=== PATIENT | male | born 1985 | race Caucasian/White ===

== ENCOUNTER → 2019-03-07 08:55 | Outpatient (BNVA) | payer MEDICARE, MEDICAID, SELFPAY | PROVIDERS: PCP Emergency Medicine; Referring Provider Emergency Medicine; Visit Provider Orthopaedic Surgery | DX: M25.532 Pain in left wrist (principal); M67.432 Ganglion, left wrist | CPT/HCPCS: 99201; 99213 ==

== ENCOUNTER 2019-05-14 06:03 | Day surgery (SDC) | payer MEDICARE, MEDICAID, SELFPAY ==
[2019-05-14] VITALS (7 sets, daily range): BP systolic 117–143; BP diastolic 53–83; PULSE 66–81; RESP 10–21; TEMP 36.7–36.8; O2SAT 94–97
[2019-05-14] MEDS: Lactated Ringers 1,000 ML 80 ML IV (07:11)
[2019-05-14] MEDS: ceFAZolin 1 GM/50 ML BAG IVPB (07:43)
--- NOTE | 2019-05-14 08:23 | W.PM.DSUDISC ---
Discharge Plan Disposition Patient Disposition: HOME Condition: Good Discharge Details Reason For Visit: Excision of dorsal wrist ganglion cyst L Attending Provider: Ld Hernandez Primary Care Provider: Lionel Barros Home Meds and New Rx's Prescriptions: New hydrocodone-acetaminophen 5-325 mg tablet 1 tab PO Q6H PRN (Reason: pain) Qty: 7 RF: 0 ibuprofen 800 mg tablet 800 mg PO TID Qty: 30 RF: 0 Continued diclofenac sodium 75 mg tablet,delayed release (DR/EC) 75 mg PO BID PRN (Reason: pain) Qty: 20 RF: 0 ranitidine HCl 150 MG tablet 150 mg PO BID PRNQty: 60 RF: 4 risperidone [Risperdal] 0.5 MG tablet 0.5 mg PO HS RF: 0 Discharge Instructions Additional Instructions: Elevate L hand above heart level as much as possible for next 48 hours. Bend and straighten fingers and thumb L hand 10 times/hour when awake to prevent swelling. Keep dressings and splint dry and in place until you return to 's. Return to 's office in 2 weeks. May use L hand as much as your pain allows. Referrals: Ld Hernandez MD [ [facility] STAFF PHYSICIAN] - (f/u in 2 weeks.) Equipment/Supplies: Splint Activity:: Activity as Tolerated Remove Dressings/Wound Care:: Do Not Remove Shower/Bathe:: Cover Diet:: As Tolerated Discharge Orders Discharge Orders: Discharge Order (Routine); Ordered 05/14/19 Ordered By: Ld Hernandez DS: Diagnosis Discharge Diagnosis (1) Ganglion cyst of dorsum of left wrist: Status: Chronic
--- NOTE | 2019-05-14 15:13 | ROE_ITS ---
DATE OF PROCEDURE: May 14, 2019 PREOPERATIVE DIAGNOSIS: [place] wrist gangling cyst, left. POSTOPERATIVE DIAGNOSIS: Same. PROCEDURE: Excision dorsal wrist ganglion cyst, left wrist. Application of short-arm volar fibergla ss splint. ANESTHESIA: General, Vicki Escalona CRNA SURGEON: Ld Hernandez M.D. INDICATIONS: This is a 33-year-old white male with a greater than one year history of painful dorsal wrist ganglion cyst on the left. This has failed to resolve with conservative treatment. Most impo rtantly he continues to have discomfort with work. Excision of the dorsal wrist ganglion cyst was re commended for continued pain. The risks and complications of the procedure were [facility] pre[facility]. PROCEDURE: The patient was taken to the Operating Room on 05/14/19. He was placed supine on the oper ating table and a general anesthetic was administered. A proximal tourniquet was applied to the left upper arm and the left hand, wrist and forearm were prepped and draped free in the usual sterile fas hion. The ganglion cyst appeared to be located over the scapholunate ligament. A longitudinal incis ion was made, centered over the ganglion cyst, starting just proximal to the distal edge of a tattoo and it was extended proximally to the distal edge of a more proximal tattoo. The incisional length w as about three inches. The incision was carried through the skin and subcu. The cyst was encountere d. The incision was done under tourniquet control. I then circumferentially dissected around the ga nglion cyst. It was overlapping the extensor pollicis longus tendon and appeared to arising just uln ar to the extensor carpi radialis. The cyst was traced down to the wrist capsule and it was directly over the scapholunate ligament. The cyst was completely excised and a capsule window was left over the dorsal wrist joint to allow free drainage and prevent recurrence. Hemostasis was obtained with e lectrocautery. The wound margins were then infiltrated with 0.5% Marcaine with and epinephrine solut ion. The wound was irrigated with saline solution. The skin edges were approximated with interrupte d #4-0 Nylon sutures. Sterile dressings were applied of Xeroform gauze, sterile gauze 4x4's, half of an ABD pad, wrapped with a Kerlix bandage and then a short-arm volar fiberglass splint was applied w ith a 3-inch JORGE bandage, maintaining the wrist in dorsiflexion. The tourniquet was released; there was no breakthrough bleeding to the dressings. The patient's anesthesia was reversed without complic ations. He was discharged to recovery room in good condition. The patient was later discharged home from the Day Surgery Unit when fully recovered from his general anesthesia. He was given instructions to try to elevate his left wrist above heart level as much as possible for the next 48 hours. He was encouraged to flex and extend his fingers and thumb of his l eft hand ten times an hour while awake to prevent swelling. He is to keep his splint and dressings d ry and intact until he follows up in my office in two weeks. He may use his left hand as much as dis comfort allows. He was given a prescription for mild pain and inflammation of 800 mg of ibuprofen t. i.d. for ten days. He was given a prescription for breakthrough pain of Hydrocodone with APAP 5/325, one tablet every six hours, as needed.
== END 2019-05-14 10:10 | disposition home or self-care (01) ==
PROVIDERS: PCP Emergency Medicine; Visit Provider Orthopaedic Surgery
PROC: (CPT 25111; principal; 2019-05-14 07:30)
DX: M67.432 Ganglion, left wrist (principal); M25.532 Pain in left wrist
CPT/HCPCS: 25111; J0690; J1885; J2405; J3010

== ENCOUNTER → 2019-05-29 09:53 | Outpatient (BNVA) | payer MEDICARE, MEDICAID, SELFPAY | PROVIDERS: PCP Emergency Medicine; Referring Provider Emergency Medicine; Visit Provider Orthopaedic Surgery | DX: Z47.89 Encounter for other orthopedic aftercare (principal); M67.432 Ganglion, left wrist | CPT/HCPCS: L3908 ==

== ENCOUNTER 2021-01-27 19:30 | Outpatient (REF) | payer MEDICARE, MEDICAID, SELFPAY | END 2021-01-27 19:31 | disposition home or self-care (01) | LOC: LBN 19:30 | PROVIDERS: PCP Emergency Medicine; Visit Provider Nurse Practitioner Family | DX: J02.9 Acute pharyngitis, unspecified (principal) | CPT/HCPCS: 87070 ==

== ENCOUNTER 2022-08-05 01:13 | Outpatient (CLI) | payer MEDICARE, MEDICAID, SELFPAY ==
--- NOTE | 2022-08-05 08:00 | DI.RAD_ITS ---
Exam(s) XR KNEE LT 3V AP,LAT,NICO EXAM: XR KNEE LT 3V AP,LAT,NICO CLINICAL HISTORY: PT failure, no known trauma,LT KNEE PAIN, M25.562. TECHNIQUE: 2D digital imaging was performed. COMPARISON: No exams were available for comparison FINDINGS: 3 views No evidence of fracture nor prominent joint effusion. No joint space narrowing. Benign bone island noted in the lateral tibial plateau. No osteophytes. No osteochondral defects. Bone density is nor mal. IMPRESSION: No significant osseous findings. No prominent joint effusion. DATA REPOSITORY: RADIATION DOSE DELIVERED:
== END 2022-08-05 01:33 ==
LOC: DI 01:13
PROVIDERS: PCP Nurse Practitioner Family; Visit Provider Nurse Practitioner Family
DX: M25.562 Pain in left knee (principal)
CPT/HCPCS: 73562

== ENCOUNTER → 2022-09-30 11:16 | Outpatient (BNVA) | payer MEDICARE, MEDICAID, SELFPAY | PROVIDERS: PCP Nurse Practitioner Family; Referring Provider Nurse Practitioner Family; Visit Provider Student in an Organized Health Care Education/Training Program | DX: S83.242A Other tear of medial meniscus, current injury, left knee, initial encounter (principal); X58.XXXA Exposure to other specified factors, initial encounter | CPT/HCPCS: 99203 ==

== ENCOUNTER 2022-10-28 03:21 | Outpatient (CLI) | payer MEDICARE, MEDICAID, SELFPAY ==
--- NOTE | 2022-10-28 06:15 | DI.MRI_ITS ---
Exam(s) MR LOWER JOINT LT WO EXAM: MR LOWER JOINT LT WO CLINICAL HISTORY: PAIN,TEAR OF MEDIAL MENISCUS LT KNEE, S83.242A. TECHNIQUE: Multiplanar multisequence MRI was performed. COMPARISON: CR XR KNEE LT 3V AP,LAT,NICO from 08/05/2022 FINDINGS: The examination is limited due to patient motion artifact. BONES: There is no fracture or contusion pattern. JOINTS: There is a small focus of hyperintense signal seen in the lateral aspect of the articular car tilage overlying the medial femoral condyle. No effusion is present. TENDONS: Extensor mechanism: Unremarkable. Medial retinaculum: Unremarkable. Lateral retinaculum: Unremarkable. Popliteus: Unremarkable. MUSCLES: Unremarkable. MENISCI: The medial meniscus is unremarkable. The lateral meniscus is unremarkable. SOFT TISSUES: Unremarkable. LIGAMENTS: Anterior Cruciate: Unremarkable. Posterior Cruciate: Unremarkable. Medial Collateral:Unremarkable. Lateral Collateral: Unremarkable. OTHER: IMPRESSION: 1. Small focus of hyperintense signal seen in the articular cartilage overlying the medial femoral co ndyle which may represent an area of chondromalacia or chondral injury. 2. No evidence of a meniscal or ligament tear. 3. No joint effusion or bony lesion. DATA REPOSITORY:
== END 2022-10-28 03:41 ==
LOC: DI 03:21
PROVIDERS: PCP Nurse Practitioner Family; Visit Provider Student in an Organized Health Care Education/Training Program
DX: M25.562 Pain in left knee (principal); S83.242A Other tear of medial meniscus, current injury, left knee, initial encounter; M23.8X2 Other internal derangements of left knee
CPT/HCPCS: 73721

== ENCOUNTER → 2022-11-04 09:41 | Outpatient (BNVA) | payer MEDICARE, MEDICAID, SELFPAY | PROVIDERS: PCP Nurse Practitioner Family; Referring Provider Nurse Practitioner Family | DX: M23.8X2 Other internal derangements of left knee (principal) | CPT/HCPCS: 20610; J1040 ==

== ENCOUNTER 2022-12-29 05:39 | Outpatient (CLI) | payer MEDICARE, MEDICAID, SELFPAY ==
[2022-12-29 12:57] LABS: ALT 53 U/L (16-63); AST 31 U/L (15-37); Albumin 3.7 g/dL (3.4-5.0); Alkaline Phosphatase 95 U/L (46-116); Anion Gap 7.3 mmol/L (3-11); BUN 13 mg/dL (7-18); Bilirubin, Total 0.3 mg/dL (0.2-1.0); CO2 28.7 mmol/L (21.0-32.0); CREATININE 0.9 mg/dL (0.70-1.30); Calcium 9.1 mg/dL (8.5-10.1); Calculated LDL 144 mg/dL (<100); Chloride 105 mmol/L (98-107); Cholesterol 204 mg/dL (<200); Estimated GFR 112.11 (mL/min/1.73m2); Glucose 147 mg/dL (74-106); HDL Cholesterol 39 mg/dL (40-60); Potassium 4.1 mmol/L (3.5-5.1); Sodium 141 mmol/L (136-145); Total Protein 7.8 g/dL (6.4-8.2); Triglyceride 109 mg/dL (<150)
== END 2022-12-29 05:40 | disposition home or self-care (01) ==
LOC: LOS 05:39
PROVIDERS: PCP Nurse Practitioner Family; Visit Provider Nurse Practitioner Family
DX: Z13.220 Encounter for screening for lipoid disorders (principal); E08.9 Diabetes mellitus due to underlying condition without complications
CPT/HCPCS: 36415; 80053; 80061

== ENCOUNTER 2023-01-05 15:26 | Outpatient (REF) | payer MEDICARE, MEDICAID, SELFPAY | END 2023-01-05 15:27 | disposition home or self-care (01) | LOC: LBN 15:26 | PROVIDERS: PCP Nurse Practitioner Family; Visit Provider Family Medicine | DX: E11.9 Type 2 diabetes mellitus without complications (principal) | CPT/HCPCS: 82043; 82570 ==

== ENCOUNTER 2023-03-14 02:58 | Outpatient (CLI) | payer MEDICARE, MEDICAID, SELFPAY ==
[2023-03-14 12:29] LABS: Abs Immature Grans 0.02 10^3/uL (0.0-0.06); Absolute Basophil Count 0.02 10^3/uL (0.0-0.2); Absolute Eosinophil Count 0.14 10^3/uL (0.0-0.7); Absolute Lymphocyte Count 2.23 10^3/uL (1.2-3.4); Absolute Monocyte Count 0.42 10^3/uL (0.1-0.8); Basophils % 0.3; Eosinophils % 2.3; HCT 45.2 % (40.0-50.0); HGB 15.1 g/dL (13.5-17.5); Immature Grans % 0.3; Lymphocytes % 36.4; MCH 30.9 pg (27.0-33.0); MCHC 33.4 % (32.0-36.0); MCV 92 fL (80-95); MPV 10.7 fL (8.0-11.0); Monocytes % 6.9; Neutrophils % 53.8; Platelet Count 197 10^3/uL (130-400); RBC 4.89 10^6/uL (4.36-5.78); RDW 12.1 % (11.8-14.1); RDW-SD 41.8 fL; WBC 6.13 10^3/uL (4.4-10.8)
[2023-03-14 12:39] LABS: ALT 51 U/L (16-63); AST 27 U/L (15-37); Albumin 4.5 g/dL (3.4-5.0); Alkaline Phosphatase 111 U/L (46-116); Amylase 50 U/L (25-115); Anion Gap 7.8 mmol/L (3-11); BUN 13 mg/dL (7-18); Bilirubin, Total 0.4 mg/dL (0.2-1.0); CO2 30.2 mmol/L (21.0-32.0); Calcium 9.6 mg/dL (8.5-10.1); Chloride 101 mmol/L (98-107); Glucose 109 mg/dL (74-106); Lipase 37 U/L (16-77); Potassium 4.3 mmol/L (3.5-5.1); Sodium 139 mmol/L (136-145); Total Protein 8.2 g/dL (6.4-8.2)
== END 2023-03-14 02:59 | disposition home or self-care (01) ==
LOC: LOS 02:58
PROVIDERS: PCP Nurse Practitioner Family; Visit Provider Nurse Practitioner Family
DX: R10.11 Right upper quadrant pain (principal); R10.13 Epigastric pain; E11.9 Type 2 diabetes mellitus without complications
CPT/HCPCS: 36415; 80053; 83690; 82150; 85025

== ENCOUNTER → 2023-03-18 00:40 | Outpatient (CLI) | payer MEDICARE, MEDICAID, SELFPAY ==
--- NOTE | 2023-03-18 07:15 | DI.US_ITS ---
Exam(s) US ABDOMEN EXAM: US ABDOMEN CLINICAL HISTORY: ruq and epigastric pain,r10.11 TECHNIQUE: Ultrasound abdomen performed using standard protocol. COMPARISON: CT AORTIC ANEURYSM WO Linsey PETERSON from 01/12/2017 FINDINGS: LIVER: Diffusely increased echogenicity consistent with moderate hepatic steatosis.. No focal liver lesions are seen.. GALLBLADDER: No evidence of cholelithiasis. No evidence of wall thickening. No pericholecystic fluid identified. DAMON'S SIGN: Negative. BILIARY SYSTEM: No intrahepatic or extrahepatic biliary ductal dilation. KIDNEYS: Kidneys are symmetric in size. No evidence of renal calculi. No evidence of hydronephrosis. No renal mass or cyst identified. PANCREAS: Normal where visualized. SPLEEN: Not enlarged. ABDOMINAL AORTA AND IVC: Visualized portions normal caliber. ASCITES: None seen. IMPRESSION: Moderate hepatic steatosis. DATA REPOSITORY:
== END ==
PROVIDERS: PCP Nurse Practitioner Family; Visit Provider Nurse Practitioner Family
DX: R10.11 Right upper quadrant pain (principal); K76.0 Fatty (change of) liver, not elsewhere classified
CPT/HCPCS: 76700

== ENCOUNTER → 2023-09-14 09:21 | Outpatient (BNVA) | payer MEDICARE, MEDICAID, SELFPAY | PROVIDERS: PCP Nurse Practitioner Family; Referring Provider Nurse Practitioner Family; Visit Provider Surgery | DX: K21.9 Gastro-esophageal reflux disease without esophagitis (principal) | CPT/HCPCS: 99213 ==

== ENCOUNTER 2023-10-14 12:20 | Day surgery (SDC) | payer MEDICARE, MEDICAID, SELFPAY ==
--- NOTE | 2023-10-13 19:14 | PDOC.DSDIS_ITS ---
Date of service: 10/14/23 Time of Service: 15:34 Discharge Plan Disposition Patient Disposition: Home Condition: Good Discharge Details Reason For Visit: EGD Attending Provider: Cresencio Peters Primary Care Provider: Cuauhtemoc Hays Home Meds and New Rx's Prescriptions: Continued metformin 500 mg tablet 500 mg PO BID Qty: 180 4RF Rx Instructions: Take 1 tablet twice a day (dose decrease) risperidone [Risperdal] 0.5 mg tablet 0.5 mg PO HS (DME) OneTouch Verio test strips Strip See Rx Instructions .ROUTE .MEDSUPPLY Qty: 200 4RF Rx Instructions: Check blood sugar twice a day (DME) blood-glucose meter Misc See Rx Instructions .Route Qty: 1 0RF Rx Instructions: As directed (DME) lancets [OneTouch Delica Plus Lancet] 33 gauge misc See Rx Instructions .ROUTE .MEDSUPPLY Qty: 200 4RF Rx Instructions: Check blood sugar twice a day omeprazole 40 mg capsule,delayed release(DR/EC) 40 mg PO DAILY Qty: 90 1RF Discharge Instructions Instructions: Chopra Esophagus (GEN) Additional Instructions: Aron, we were able to complete your EGD today just like we talked about. You do have some changes around the lower part of your esophagus where it connects to your stomach that are consistent with something called Chopra's esophagus. Essentially, this is longstanding gastroesophageal reflux disease. I did do some biopsies in the area to help confirm this diagnosis. Slightly more interesting, around fci down your esophagus, there appears to be some pressure pushing into the part where you swallow. I wonder if this is one of the major causes of your symptoms. To be very truthful and not exactly sure what it is. I think the most useful test after this will be a CT scan of your chest, and perhaps a swallowing test where you drink some liquids and take some x-rays to see how the liquid flows down. We will be working to make those arrangements as an outpatient, after I have the biopsy results. I have taken the liberty of scheduling a follow-up appointment my office on the at 11:15 AM. We can review the pathology results from the biopsies at that time and make a plan together. 1. If tolerated, consume a soft, low fiber diet for 1-2 days. 2[address] Do not drive, drink alcohol, operate machinery, make critical decisions, or do activities that require coordination or balance for 24 hours. 3. You may experience a sore throat for 24 to 48 hours. You may use throat lozenges or gargle with warm salt water to relieve the discomfort. 4. Because air was put into your stomach during the procedure, you may experience some belching. 5. Go directly to the emergency room if you notice any of the following: Develop chills (warm to touch), or if you have a thermometer and your temperature is above 101 Difficulty breathing or difficultly swallowing Persistent vomiting Severe abdominal pain, other than gas cramps Severe chest pain Black, tarry stools Any bleeding ? exceeding one tablespoon 6. Call your physician if the site where your intravenous was started becomes red, swollen, painful, and warm to touch. 7. Your physician has reviewed your pre-procedure medications. Please continue to take those medications as previously ordered. You will be given specific in formation/education regarding any changes to your medications before leaving. Stand Alone Forms: Anesthesia Discharge InstLexis Carroll (DSU) Activity:: Activity as Tolerated Diet:: As Tolerated Discharge Orders Discharge Orders: Discharge Order (Routine); Ordered 10/13/23 Ordered By: Cresencio Peters DS: Diagnosis Discharge Diagnosis (1) Gastroesophageal reflux disease without esophagitis: Status: Chronic Asessment and Plan: Follow-up on biopsy results
--- NOTE | 2023-10-13 19:16 | ENDO_ITS ---
Date of service: 10/14/23 Time of Service: 14:53 Endoscopy Report DATE OF PROCEDURE: 10/14/23 PRE-OP DIAGNOSIS: GERD POST-OP DIAGNOSIS: other (Chopra's esophagus, extrinsic compression of the esophagus at 20 cm) PROCEDURE: EGD with biopsies SURGEON: Cresencio Peters ANESTHESIA TYPE: General:No Airway ESTIMATED BLOOD LOSS: 10 PATHOLOGY: other (Random biopsies of duodenum, gastric antrum and body; four- quadrant biopsies of the GE junction) COMPLICATIONS: None DISPOSITION: same day INDICATIONS: Aron is a 38-year-old male with longstanding gastroesophageal reflux disease who is recently been experiencing food bolus sensation, and some mild dysphagia with multiple types of food PROCEDURE START TIME: 14:43 PROCEDURE END TIME: 14:53 FINDINGS: 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 Under the direct vision of the scope, I advanced down the esophagus towards the stomach.? Around 20 cm from the incisors with some extrinsic compression of the esophageal lumen. The mucosa itself was normal-ap pearing. It does not appear consistent with a leiomyoma. It appears pulsatile, and although we are in the area of the retrocardiac space, is far more pronounced than I would expect. I am able to navigate across it without any difficulty. There is irregularity of the Z-line that starts at 38 cm from the incisors. The GE junction is at 40 cm from the incisors. Narrowband imaging was used to assess the area. Grossly, it appears consistent with Chopra's esophagus. The camera was advanced down into the stomach and retroflexed. I do not appreciate any hiatal hernia. Gastric mucosa appears normal. There are some minimal inflammation around the antrum at the pylorus, with no discrete ulceration. I am able to navigate across the pylorus into the duodenum which also appears normal. I did perform some random biopsies of the duodenum using cold forceps before rating the camera back up into the stomach and biopsying the gastric antrum and body. These will be used to rule out Helicobacter pylori. Next, I brought the camera back up to the GE junction. With short segment Chopra's esophagus, I did perform four-quadrant biopsies. These were also performed with cold forceps without any issues. The camera was advanced down into the stomach again, and I emptied it completely. I then brought the camera out along the length of the esophagus, documenting the extrinsic compression previously mentioned. The patient was then allowed awaken from anesthesia and transferred to the recovery unit.
--- NOTE | 2023-10-14 06:46 | ANES.PREOP_ITS ---
General Info Date of Service Date Performed: 10/14/23 Height: 5 ft 9 in Weight: 96.275 kg Body Mass Index (BMI): 31.3 Surgical Procedure: Operation Date: 10/14/23 12:20 Proposed Procedure Side Surgeon p Gastroscopy Cresencio Peters MD Meds Allergies and Home Medications Allergies Allergy/AdvReac Type Severity Reaction Status Date / Time No Known Allergies Allergy Verified 10/14/23 12:34 Home Medication Medication Instructions Recorded risperidone 0.5 mg tablet 0.5 mg PO HS 09/30/22 (Risperdal) blood sugar diagnostic (Salir.comTouch #200 ea 01/06/23 Verio test strips) blood-glucose meter #1 ea 01/06/23 lancets 33 gauge (OneTouch Delica #200 ea 01/06/23 Plus Lancet) metformin 500 mg tablet 500 mg PO BID #180 tabs 04/15/23 omeprazole 40 mg capsule,delayed 40 mg PO DAILY #90 caps 09/06/23 release Current Visit Medications: Current Medications Generic Name Dose Route Start Last Admin Trade Name Andresq PRN Reason Stop Dose Admin Hyoscyamine Sulfate 0.125 mg 10/13/23 19:17 Hyoscyamine 0.125 Mg Sl/Oral/Chew SL 11/12/23 19:16 DIRECTED PRN Ringer's Solution 1,000 mls @ 80 mls/hr 10/14/23 06:00 IV 10/14/23 23:59 INFUSION [facility] IV Miscellaneous Supplies 1 each 10/14/23 06:00 Iv Access IV 10/14/23 23:59 DIRECTED CRYSTAL Ondansetron HCl 4 mg 10/13/23 19:17 Ondansetron 4 Mg/2 Ml Vial IVP 11/12/23 19:16 Q4H PRN PRN Nausea / Vomiting Sodium Chloride 0 ml 10/14/23 06:00 Normal Saline Flush 10 Ml Syr IV 10/14/23 23:59 PRN PRN Sodium Chloride 0 ml 10/14/23 06:00 Normal Saline 10 Ml Vial IJ 10/14/23 23:59 DIRECTED PRN Sterile Water 0 ml 10/14/23 06:00 Water,Injection,Sterile 10 Ml Vial IJ 10/14/23 23:59 DIRECTED PRN PFSH Active Problems Active Problems: Problem Status Onset Code Diabetes mellitus type 2, controlled, without complications E11.9 Tear of medial meniscus of left knee S83.242A Left knee pain M25.562 Ganglion cyst of dorsum of left wrist M67.432 Intellectual disability F79 Gastroesophageal reflux disease without esophagitis 02/17/17 K21.9 Asthma J45.909 Medical History Medical History Unable to read or write can write his name but cannot read per mother Psychosis Surgical History Surgical History H/O eye surgery (05/24/13) Bilateral strabismus surgery for esotropia. [place] [facility] [place] Smoking/Tobacco Use Status: Former Tobacco Use Smokeless tobacco user: snuff Passive smoking exposure: Yes Second hand exposure: Yes Alcohol Alcohol Intake: never Substance Use Substance use: Never Substance use type: does not use Vital Signs and Lab Results Vital Signs Most Recent Vital Signs in EMR: Temp Pulse Resp BP Pulse Ox 36.7 C 80 16 134/83 97 10/14/23 12:37 10/14/23 12:37 10/14/23 12:37 10/14/23 12:37 10/14/23 12:37 Lab Results Blood Type / Crossmatch: No Data to Display Complete Blood Count: No Data to Display Complete Metabolic Panel: No Data to Display Liver Function Panel: No Data to Display Coagulation Panel: No Data to Display Cardiac Panel: No Data to Display Arterial Blood Gas: No Data to Display Venous Blood Gas: No Data to Display Pancreas Panel: No Data to Display Thyroid Panel: No Data to Display Infectious Disease: No Data to Display Blood Cultures: No Data to Display Toxicology Panel: No Data to Display Anesthesia Assessment and Plan Anesthesia History Personal History: No History of Anesthesia Complications Family History: No Family History of Anesthesia Complications Exercise Tolerance Exercise Tolerance: Metabolic Equivalents>4 Cardiac & Pulmonary Exam Cardiac Exam: Normal S1/S2 Heart Sounds Pulmonary Exam: Clear Bilateral Breath Sounds Implantable Cardiac Device Does patient have a Pacemaker or an ICD?: No Airway Exam Known Difficult Airway: No Mallampati Class: 3 Mouth Opening: Narrow (< 3cm) Thyromental Distance: Greater than 3 cm Neck Range of Motion: Full ROM Neck Circumference: Normal Teeth Condition: Normal Dentition (not in great condition, but denies loose. ) ASA Classification ASA Score: ASA 2 Emergency Case?: No NPO Status NPO Status: NPO Clears >2 hours, Solids >8 hours Anesthesia Plan Resuscitation Status: Full Code Anesthesia Technique: General Anesthesia Airway Planned: Natural Airway Monitors Used: Standard Monitors Preoperative Comments:: 38 yo male for EGD. Sig PMHx: GERD, asthma, DM2 (last A1c 6.2), ADHD Previous Anes: - cysto, LMA 4
[2023-10-14 06:47] VITALS: BMI 31.3
[2023-10-14 12:37] VITALS: BP 134/83; PULSE 80; RESP 16; TEMP 36.7; O2SAT 97
[2023-10-14] MEDS: Lactated Ringers 1,000 ML 80 ML IV (12:57)
--- NOTE | 2023-10-14 14:46 | STOM_PTH ---
PATIENT: Sidney Lo LOC: [facility] U#:[id number] AGE/SX: 38/M ROOM: RE10/14/[address]: Cresencio Peters MD : 1985 BED: DIS: 10/14/2023 SPEC #: [id number] RECD: 10/14/23 18:14 STATUS: TANVI [facility] #: [id number] FRANCI: 10/14/23 14:[address]: Cresencio Peters DEPT: Surgical Specimen RECD BY: Ermelinda Lozada ENTERED: 10/14/23 18:15 SP TYPE: STOMACH OTHR DR: Cuauhtemoc Hopson DNP Tissues: 1 - BIOPSY BOWEL 2 - STOMACH BIOPSY 3 - STOMACH BIOPSY 4 - ESOPHAGUS BIOPSY Procedures: GROSS AND MICRO LEVEL 4 Comments: [id number]
[2023-10-14 14:59] VITALS: BP 129/66; PULSE 90; RESP 16; TEMP 36.7; O2SAT 96
--- NOTE | 2023-10-14 15:01 | W.ANESPOSTOP ---
Postoperative Evaluation Date, Time and Location Date Performed: 10/14/23 Time Performed: 15:01 Patient Location: Day Surgery Unit Vital Signs Most Recent Imported Vital Signs: Temp Pulse Resp BP Pulse Ox 36.6 C 69 16 141/87 H 98 10/14/23 15:30 10/14/23 15:30 10/14/23 15:30 10/14/23 15:30 10/14/23 15:30 Most Recent Vital Signs Pain Score Most Recent Pain Score: Most Recent Pain Score Pain Level 0 10/14/23 12:37 Assessment Mental Status: Awake (Alert & Oriented to Patient Baseline) Airway and Respiratory Function: Patent airway with normal (patient baseline) respiratory exam Cardiovascular Function: Hemodynamically Stable Hydration Status: Adequately Hydrated Nausea & Vomiting: No Nausea or Vomiting Pain: Pt. Denies Any Pain Peripheral Nerve Block: Patient did not receive a nerve block
[2023-10-14 15:30] VITALS: BP 141/87; PULSE 69; RESP 16; TEMP 36.6; O2SAT 98
== END 2023-10-14 15:50 | disposition home or self-care (01) ==
LOC: SUR 12:20
PROVIDERS: PCP Nurse Practitioner Family; Visit Provider Surgery
PROC: 0DJ68ZZ Inspection of Stomach, Via Natural or Artificial Opening Endoscopic (ICD-10-PCS; CPT 43235; principal; 2023-10-14 12:15)
DX: K21.9 Gastro-esophageal reflux disease without esophagitis (principal); K22.719 Barrett's esophagus with dysplasia, unspecified; J45.909 Unspecified asthma, uncomplicated; E11.9 Type 2 diabetes mellitus without complications; F79 Unspecified intellectual disabilities; K22.89 Other specified disease of esophagus
CPT/HCPCS: 43239; 88305; J2001; J2405; J2704

== ENCOUNTER → 2023-10-26 10:56 | Outpatient (BNVA) | payer MEDICARE, MEDICAID, SELFPAY | PROVIDERS: PCP Nurse Practitioner Family; Referring Provider Nurse Practitioner Family; Visit Provider Surgery | DX: Z48.815 Encounter for surgical aftercare following surgery on the digestive system (principal); K22.2 Esophageal obstruction | CPT/HCPCS: 99213 ==

== ENCOUNTER → 2023-10-31 01:43 | Outpatient (CLI) | payer MEDICARE, MEDICAID, SELFPAY ==
--- NOTE | 2023-10-31 10:05 | DI.RAD_ITS ---
Exam(s) RF BARIUM SWALLOW EXAM: RF BARIUM SWALLOW CLINICAL HISTORY: Extrinsic compression of mid esophagus,k22.2 TECHNIQUE: 2D and realtime digital imaging was performed. CONTRAST MATERIAL: Thick and thin barium and barium tablet were administered. COMPARISON: No exams were available for comparison FINDINGS: The PA and lateral chest films show normal heart size and clear lung salomon. The lateral manager lan view of the neck is unremarkable. Esophagus: The patient swallowed barium without difficulty. Noevidence for mucosal erosions. Nofol d thickening. No mass is visible. Nostricture. Motility: There is a normal primary stripping wave. No tertiary contractions were noted. There is a small sliding hiatal hernia. Moderate to severe gastroesophageal reflux was observed during the exam. IMPRESSION: Small sliding hiatal hernia. Moderate to severe gastroesophageal reflux. RADIATION DOSE DELIVERED: donny Schmid=15.1 mGy
[2023-10-31] MEDS: Simethicone/Sod Bicarb/Cit Ac, 4 gram PACKET 1 PACKET PO (10:07)
[2023-10-31] MEDS: Barium Sulfate 700 MG TAB PO (10:07)
[2023-10-31] MEDS: Barium Sulfate 60% W/V 355 ML BTL PO (10:08)
[2023-10-31] MEDS: Barium Sulfate 98% W/W 140 ML BTL PO (10:10)
== END ==
PROVIDERS: PCP Nurse Practitioner Family; Visit Provider Surgery
DX: K21.00 Gastro-esophageal reflux disease with esophagitis, without bleeding (principal)
CPT/HCPCS: 74221; J3490

== ENCOUNTER → 2023-11-03 03:48 | Outpatient (CLI) | payer MEDICARE, MEDICAID, SELFPAY ==
--- NOTE | 2023-11-03 06:00 | DI.CT_ITS ---
Exam(s) CT THORAX CTA EXAM: CT THORAX CTA CLINICAL HISTORY: Pulsatile extrinsic compression of the esophagus,K22.2. TECHNIQUE: Imaging Protocol: Axial CT angiography was performed with multi-slice acquisition and mu lti-planar and/or 3D reconstructions. CONTRAST MATERIAL: Intravenous: Omnipaque 350 contrast volume:100 mL COMPARISON: CT AORTIC ANEURYSM WO W CONTRAS from 01/12/2017 CR,RF RF BARIUM SWALLOW from 10/31/2023 FINDINGS: Tracheobronchial tree: Patent where visualized. Pulmonary parenchyma: No consolidation or dominant measurable mass. No architectural distortion. Pulmonary Arteries: No evidence of filling defect to suggest pulmonary emboli. Mediastinum and Gwendolyn: No dominant adenopathy or fluid collection. The esophagus is unremarkable. Visualized thyroid gland: Unremarkable. Pleura: No effusion or pneumothorax. Heart: The heart is not dilated. No coronary artery calcifications are seen. No pericardial effusion. Aorta: Thoracic aorta non-dilated. No evidence of dissection. Upper abdomen: Unremarkable. Soft tissues: Unremarkable. Bones: Within normal limits for the patient's age. IMPRESSION: 1. No evidence of pulmonary embolism, thoracic aortic dissection or aneurysm. 2. Unremarkable appearance of the esophagus. RADIATION DOSE DELIVERED: Total DLP Total DLP DATA REPOSITORY: All CT scans at this facility are submitted to the National Radiology Data Registry (NRDR) Dose Index Registry (DIR) with the [employer] (ACR). RADIATION OPTIMIZATION: All CT scans at this facility use at least one of these dose optimization te chniques: automated exposure control; mA and/or kV adjustment per patient size (includes targeted exa ms where dose is matched to clinical indication); or iterative reconstruction.
[2023-11-03 07:52] LABS: CREATININE 1.1 mg/dL (0.70-1.30); Estimated GFR 87.57 (mL/min/1.73m2)
[2023-11-03] MEDS: Omnipaque 350 MG/ML 100 ML BTL IJ (08:15)
[2023-11-03] MEDS: Normal Saline - Diluent 50 ML VIAL IJ (08:16)
== END ==
PROVIDERS: PCP Nurse Practitioner Family; Visit Provider Surgery
DX: K22.2 Esophageal obstruction (principal); Z01.818 Encounter for other preprocedural examination; Z01.812 Encounter for preprocedural laboratory examination
CPT/HCPCS: 71275; 82565; J3490

== ENCOUNTER → 2024-02-10 11:29 | Outpatient (CLI) | payer MEDICARE, MEDICAID, SELFPAY ==
--- NOTE | 2024-02-10 11:15 | DI.RAD_ITS ---
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 TECHNIQUE: 2D digital imaging was performed. COMPARISON: No exams were available for comparison FINDINGS: No evidence of fracture or dislocation or abnormal soft tissue calcifications. Subacromial space rené ears unremarkable. Coracoid process unremarkable. No degenerative changes in the glenohumeral and A C joint. IMPRESSION: No acute osseous findings in the shoulder. DATA REPOSITORY: RADIATION DOSE DELIVERED:
--- NOTE | 2024-02-10 12:01 | DI.RAD_ITS ---
Exam(s) XR CERVICAL SPINE COMP 4-5V EXAM: XR CERVICAL SPINE COMP 4-5V CLINICAL HISTORY: fell off crop roller M54.2 CERVICALGIA. TECHNIQUE: 2D digital imaging was performed. COMPARISON: No exams were available for comparison FINDINGS: Six views No evidence of fracture, listhesis, nor offset of the spinal laminar line. All of the disc spaces ex hibit normal height although there is anterior osseous lipping at C4-5 and below probably indicates a n element of degenerative disc disease despite normal disc height. Oblique images do not reveal sign ificant Luschka joint osteophytes. There are no cervical ribs. Bone density normal. No osseous les ions. IMPRESSION: Evidence of degenerative disc disease. No acute osseous findings in the cervical spine.. DATA REPOSITORY: RADIATION DOSE DELIVERED:
--- NOTE | 2024-02-10 12:08 | DI.RAD_ITS ---
Exam(s) XR THORACIC SPINE COMPLETE EXAM: XR THORACIC SPINE COMPLETE CLINICAL HISTORY: UPPER BACK PAIN M54.9 DORSALGIA. TECHNIQUE: 2D digital imaging was performed. COMPARISON: CR XR CERVICAL SPINE COMP 4-5V from 02/10/2024 FINDINGS: 3 views No evidence of fracture or listhesis nor prominent disc space narrowing. No obvious facet malalignme nt. No widening of the paraspinal lines. No scoliosis evident. IMPRESSION: New acute osseous findings in the thoracic spinal column. DATA REPOSITORY: RADIATION DOSE DELIVERED:
== END ==
PROVIDERS: PCP Nurse Practitioner Family; Visit Provider Nurse Practitioner Family
DX: M54.2 Cervicalgia (principal); M25.512 Pain in left shoulder; M54.9 Dorsalgia, unspecified
CPT/HCPCS: 72050; 72072; 73030

== ENCOUNTER 2024-04-19 13:11 | Outpatient (CLI) | payer MEDICARE, MEDICAID, SELFPAY ==
--- NOTE | 2024-04-19 12:40 | DI.MRI_ITS ---
Exam(s) MR UPPER JOINT LT WO EXAM: MR UPPER JOINT LT WO CLINICAL HISTORY: left shoulder injury, limited ROM, S49.92XA. TECHNIQUE: Multiplanar multisequence MRI was performed. COMPARISON: Plain films 10 February 2024 FINDINGS: BONES: There is no fracture or contusion pattern. JOINTS:The acromioclavicular joint is normal. The glenohumeral joint is normal. TENDONS: Supraspinatus: Unremarkable. Infraspinatus: Unremarkable. Subscapularis: Unremarkable. Teres Minor: Unremarkable. Biceps and [place]: Unremarkable. MUSCLES: Unremarkable. GLENOID LABRUM: Unremarkable on this noncontrast examination. SOFT TISSUES: Unremarkable. OTHER: Subacromial and subdeltoid bursae . IMPRESSION: Unremarkable MRI of the shoulder. DATA REPOSITORY:
== END 2024-04-19 13:31 ==
LOC: DI 13:11
PROVIDERS: PCP Nurse Practitioner Family; Visit Provider Nurse Practitioner Family
DX: S49.92XA Unspecified injury of left shoulder and upper arm, initial encounter (principal); X58.XXXA Exposure to other specified factors, initial encounter
CPT/HCPCS: 73221

== ENCOUNTER → 2024-09-25 09:20 | Outpatient (BNVA) | payer MEDICARE, MEDICAID, SELFPAY | PROVIDERS: PCP Nurse Practitioner Family; Referring Provider Nurse Practitioner Family; Visit Provider Student in an Organized Health Care Education/Training Program | DX: M25.512 Pain in left shoulder (principal); M54.12 Radiculopathy, cervical region; E11.9 Type 2 diabetes mellitus without complications | CPT/HCPCS: 99214 ==

== ENCOUNTER 2024-09-26 11:28 | Outpatient (CLI) | payer MEDICARE, MEDICAID, SELFPAY ==
--- NOTE | 2024-09-26 11:15 | DI.MRI_ITS ---
Exam(s) MR CERVICAL SPINE WO EXAM: MR CERVICAL SPINE WO CLINICAL HISTORY: RADICULOPATHY, CERVICAL REGION M54.12 TECHNIQUE: Multiplanar multisequence MRI of the cervical spine was performed without intravenous con trast. COMPARISON: CR XR CERVICAL SPINE COMP 4-5V from 02/10/2024 FINDINGS: CERVICOMEDULLARY JUNCTION: Intact with no evidence of cerebellar tonsillar ectopia. No obvious abnor mality of the odontoid process. No evidence of Chiari 1 malformation. CERVICAL SPINAL CORD: There is no abnormal signal in the cervical spinal cord and no evidence of foca l cord atrophy nor focal cord swelling. OSSEOUS:There are no cervical fractures evident. No significant osseous lesions in the cervical vert ebrae. There is mild straightening but no reversal of the normal cervical curvature. INDIVIDUAL LEVELS: C2-3: No disc herniation nor central canal stenosis. No foraminal stenosis. No facet arthropathy. C3-4: No disc herniation nor central canal stenosis.No facet arthropathy. No foraminal stenosis. C4-5: Mild anterior osseous lipping. Normal disc height and signal. Mild symmetrical annular bulgin g. No dominant disc herniation. Central canal dimensions are lower normal. There are tiny bilatera l Luschka joint osteophytes. No true foraminal stenosis.No facet arthropathy. C5-6: Mild anterior osseous lipping. Normal disc height and signal. Posteriorly there is broad mild symmetrical annular bulging which effaces the anterior aspect of the thecal sac but not the spinal c ord. The AP measurement of the canal at this level is 10.5 mm. There is no significant facet arthro kamilah. No significant foraminal stenosis. C6-7: This level exhibits relatively preserved disc height and signal. However, there are Modic type 1 sub endplate marrow edema changes in the upper C7 vertebral body. No similar findings in the lowe r C6 vertebral body. Posteriorly there is broad annular bulging, more so left of center, with efface ment of the anterior thecal sac but not the spinal cord. The AP measurement of the canal at this lev el is 10 mm. There is no significant facet arthropathy. There is no foraminal stenosis on right jaren e at this level. On the left side there is a tiny Luschka joint osteophyte-disc complex but with onl y minimal AP narrowing of the exiting neural foramen. There is no tight foraminal stenosis. C7-T1: No disc herniation nor central canal stenosis. No facet arthropathy.No foraminal stenosis. IMPRESSION: 1. Findings at C6-7 level as described above. Slightly asymmetric left paracentral annular bulging a t this level effaces the anterior thecal sac but not the spinal cord and does not extend into the exi ting left neural foramen. There are mild Modic type 1 sub endplate marrow edema changes in the super ior aspect of C7 vertebral body. No abnormal marrow signal in the C6 vertebral body 2. Lesser findings at C5-6 and C4-5 levels, as described above. DATA REPOSITORY:
== END 2024-09-26 11:48 ==
PROVIDERS: PCP Nurse Practitioner Family; Visit Provider Nurse Practitioner Family
DX: M54.12 Radiculopathy, cervical region (principal)
CPT/HCPCS: 72141

== ENCOUNTER 2024-11-07 13:50 | Outpatient (CLI) | payer MEDICARE, MEDICAID, SELFPAY ==
[2024-11-07 14:10] VITALS: BP 137/92; PULSE 79; RESP 20; TEMP 36.6; O2SAT 97
--- NOTE | 2024-11-07 14:16 | PDOC.PAIN ---
Date of service: 11/07/24 Time of Service: 14:46 Pain Managment Procedure Note Procedure Note Procedure Note: CERVICAL EPIDURAL STEROID INJECTION ? Pre-procedure Diagnosis: M54.12- Radiculopathy, cervical region ? Post-procedure Diagnosis:? The same as above ? Sedation:? ? none ? Medication: Depo-Medrol 80 mg, Omnipaque 1 mL ? Estimated blood loss:? less than 2 cc ? Surgeon:? Alessandro Angulo MD Comment: Pt has HNP C6-7 towards the left ? Procedure Detail:? The procedure and potential risks were explained to the patient and informed written consent was obtained. The patient was escorted to the procedure room and placed in the prone position. Pillows were utilized for proper positioning and comfort. Time out was performed in the procedure room with nursing staff confirming the patient's identity, procedure to be performed, allergies, and any blood thinning or anti-platelet medications.? The patient's neck and upper back was prepped with ChloraPrep and draped in a sterile fashion. Sterile technique was maintained throughout the procedure.? Sterile gloves were used, a face mask was worn, and new single dose vials of all medications were used with the top being swabbed with alcohol and given time to dry prior to withdrawal of medication. Lidocaine 1% was used to anesthetize the skin. Using a 25-gauge 1.5 inch needle, 1% lidocaine was instilled into the superficial soft tissue overlying the targeted area to provide local anesthesia. With fluoroscopic guidance, a 17 -gauge Tuohy needle was advanced toward the interlaminar space of C7-T1. The needle was then advance through the ligamentum flavum and into the posterior epidural space using the loss of resistance technique. Correct needle placement was confirmed through review of the AP and contralateral oblique fluoroscopic views. A 19-gauge Arrow catheter was threaded cephalad to the Left C6 Following negative aspiration, one cc of Omnipaque 240 contrast was injected which confirmed good flow throughout the epidural space and no evidence of vascular flow or flow into adjacent compartments. Next, following negative aspiration, 1 cc's of normal saline and 80mg of Depo-Medrol was injected. The needle and catheter were gently removed intact. The patient tolerated the procedure well and was transported to the recovery area for observation and discharge instructions. Permanent images saved and recorded. Plan:? Follow up PRN. PAIN PRE PROCEDURE 01/15 POST PROCEDURE 11/15 COMMENT:Repeat as needed Coding Conscious Sedation used for procedure: No CPT Codes: Inj Spine C/T w/Imaging - [id number] ([id number] ~G) Additional Codes: Date of Service (97131) Date of service: 11/07/24
[2024-11-07 14:32] VITALS: PULSE 77; O2SAT 96
[2024-11-07 14:40] VITALS: PULSE 87; O2SAT 98
--- NOTE | 2024-11-07 14:47 | DI.RAD_ITS ---
Exam(s) XR PAIN CLINIC CERVICAL SP 2V EXAM: XR PAIN CLINIC CERVICAL SP 2V CLINICAL HISTORY: DX: Cervical Radiculopathy TECHNIQUE: 2D and realtime digital imaging was performed. CONTRAST MATERIAL: Refer to procedure report. COMPARISON: No exams were available for comparison FINDINGS: Fluoroscopy was provided for Dr. Angulo during the performance of a cervical epidural steroid injec tion. Please refer to the procedure report for complete details. Ka,r=2.83 mGy IMPRESSION: RADIATION DOSE DELIVERED: 0.0 0.0 0
[2024-11-07] MEDS: methylPREDNISolone ACETATE 40 MG/ML VIAL IJ (14:49)
[2024-11-07] MEDS: Omnipaque 240 MG/ML 50 ML BTL IJ (14:50)
[2024-11-07] MEDS: Epidural Tray 1 EACH MC (14:50)
== END 2024-11-07 13:51 | disposition home or self-care (01) ==
LOC: PC 13:50
PROVIDERS: PCP Nurse Practitioner Family; Visit Provider Anesthesiology Pain Medicine
DX: M54.12 Radiculopathy, cervical region (principal); M54.2 Cervicalgia
CPT/HCPCS: 62321; 72040; J1010; Q9967